=== PATIENT | female | born 1985 | race Caucasian/White ===

== ENCOUNTER 2019-02-23 22:25 | Emergency (ER) | payer OTHER ==
[~2019-02-23] VITALS: Ht 160 cm; Wt 79.4 kg
[2019-02-23] MEDS ORDERED: PRENATAL VIT (22:36)
[2019-02-23] MEDS ORDERED: ZYRTEC (22:36)
[2019-02-23 23:07] LABS: BASOPHILS # (AUTO) 0.15 x10^3/uL (0-0.1); BASOPHILS % (AUTO) 1 % (0-1); EOSINOPHILS # (AUTO) 0.13 x10^3/uL (0-0.4); EOSINOPHILS % (AUTO) 1 % (1-7); LYMPHOCYTES # (AUTO) 4.49 x10^3/uL (1-3.4); LYMPHOCYTES % (AUTO) 28 % (22-44); MD NO; MEAN CORPUSCULAR HEMOGLOBIN 30.8 pg (27.0-34.8); MEAN CORPUSCULAR HGB CONC 33.4 g/dL (32.4-35.8); MEAN CORPUSCULAR VOLUME 92.2 fL (80-100); MEAN PLATELET VOLUME 8.6 fL (7.4-10.4); MONOCYTES # (AUTO) 0.84 x10^3/uL (0.2-0.8); MONOCYTES % (AUTO) 5 % (2-9); NEUTROPHILS # (AUTO) 10.71 x10^3/uL (1.8-6.8); NEUTROPHILS % (AUTO) 66 % (42-75); PLATELET COUNT 388 x10^3/uL (130-400); RED BLOOD COUNT 4.39 x10^6/uL (3.82-5.3); RED CELL DISTRIBUTION WIDTH 13.6 % (9.6-15.2)
[2019-02-23 23:23] LABS: ALBUMIN 3.5 g/dL (3.4-5.0); ANION GAP 8 mmol/L (5-15); CALCIUM 8.9 mg/dL (8.5-10.1); CHLORIDE 106 mmol/L (98-107)
--- NOTE | 2019-02-23 23:30 | NUR ---
pt to ed for vaginal bleeding. 2nd pad. +cramping. . gait steady. vss. call zaidi in reach. as
[2019-02-23 23:42] LABS: CREATININE 0.66 mg/dL (0.55-1.02)
[2019-02-24 00:06] LABS: MICROSCOPIC INDICATED
--- NOTE | 2019-02-24 00:10 | NUR ---
Report from Rafaela STINSON. Pt resting in bed, RAGINI, denies needs.
--- NOTE | 2019-02-24 00:13 | NUR ---
report to melissa payneas
[2019-02-24 00:55] LABS: CULTURE INDICATED? NO
[2019-02-24 01:38] VITALS: BP 111/67
== END 2019-02-24 01:40 | disposition home or self-care (01) ==
LOC: ED 02-24 00:42
DX: O20.0 Threatened abortion (principal); R82.71 Bacteriuria
CPT/HCPCS: 36415; 76801; 80048; 81001; 82040; 84702; 85025; 86901; 99284

== ENCOUNTER 2019-07-17 12:54 | Inpatient (IN) | payer OTHER ==
[~2019-07-17] VITALS: Ht 162.6 cm; Wt 88.0 kg
[~2019-07-17 12:54] MED LIST: PRENATAL VIT; ZYRTEC
[2019-07-17 14:24] LABS: CHLORIDE 109 mmol/L (98-107)
[2019-07-17 14:25] LABS: MICROSCOPIC INDICATED
[2019-07-17 14:31] LABS: TOTAL PROTEIN,URINE RANDOM 6 mg/dL (0-12)
[2019-07-17 14:32] LABS: ALANINE AMINOTRANSFERASE 18 U/L (12-78); ALBUMIN 2.6 g/dL (3.4-5.0); ALKALINE PHOSPHATASE 91 U/L (45-117); ANION GAP 8 mmol/L (5-15); BILIRUBIN,TOTAL 0.4 mg/dL (0.2-1.0); CALCIUM 8.4 mg/dL (8.5-10.1); CREATININE 0.53 mg/dL (0.55-1.02); TOTAL PROTEIN 6.6 g/dL (6.4-8.2)
[2019-07-17 14:33] LABS: CREATININE,URINE RANDOM < 13.00 mg/dL; PROTEIN/CREATININE RATIO,URINE 462 (0-200)
[2019-07-17 14:36] LABS: BILIRUBIN, DIRECT < 0.1 mg/dL (0.1-0.2)
[2019-07-17 14:41] LABS: BASOPHILS % (AUTO) 1 % (0-1); EOSINOPHILS # (AUTO) 0.05 x10^3/uL (0-0.4); EOSINOPHILS % (AUTO) 1 % (1-7); LYMPHOCYTES # (AUTO) 1.78 x10^3/uL (1-3.4); LYMPHOCYTES % (AUTO) 16 % (22-44); MD SCAN; MEAN CORPUSCULAR HEMOGLOBIN 29.1 pg (27.0-34.8); MEAN CORPUSCULAR HGB CONC 32.4 g/dL (32.4-35.8); MEAN CORPUSCULAR VOLUME 89.6 fL (80-100); MEAN PLATELET VOLUME 8.7 fL (7.4-10.4); MONOCYTES # (AUTO) 0.61 x10^3/uL (0.2-0.8); MONOCYTES % (AUTO) 6 % (2-9); NEUTROPHILS # (AUTO) 8.71 x10^3/uL (1.8-6.8); NEUTROPHILS % (AUTO) 77 % (42-75); PLATELET COUNT 294 x10^3/uL (130-400); RED BLOOD COUNT 3.89 x10^6/uL (3.82-5.3); RED CELL DISTRIBUTION WIDTH 15.2 % (9.6-15.2)
[2019-07-17] MEDS ORDERED: BETAMETHASONE 6 MG/ML, 5ML IM ONE (15:16)
[2019-07-17] MEDS: BETAMETHASONE 6 MG/ML, 5ML IM SCH (15:25)
[2019-07-17] MEDS ORDERED: hydrALAzine 20 MG/ML, 1ML IVPush ONE (16:30)
[2019-07-17] MEDS ORDERED: LACTATED RINGERS 1,000 ML IV SCH ×2 (16:30→19:31)
[2019-07-17] MEDS ORDERED: MAGNESIUM SULFATE PMX 4GM/100M 100 ML IVPB ONE (16:30)
[2019-07-17] MEDS ORDERED: LABETALOL 5MG/ML, 20ML IVPush PRN ×3 (16:30)
[2019-07-17] MEDS ORDERED: MAGNESIUM SULF. PMX 20GM/500ML 500 ML IV ONE (16:35)
[2019-07-17] MEDS ORDERED: LABETALOL 5MG/ML, 20ML ONE (16:35)
[2019-07-17] MEDS ORDERED: PLEASE ENTER WEIGHT MC SCH ×2 (17:00→21:00)
[2019-07-17] MEDS: MAGNESIUM SULF. PMX 20GM/500ML 500 ML IV SCH (17:16)
[2019-07-17] MEDS ORDERED: LACTATED RINGERS 1,000 ML IV PRN (17:53)
[2019-07-17] MEDS ORDERED: CALCIUM CARBONATE 500 MG TAB.CHEW ONE (18:27)
[2019-07-17] MEDS ORDERED: OXYTOCIN 30U/ 0.9% NaCL 500ML 500 ML IV ONE (19:31)
[2019-07-17] MEDS ORDERED: NEWBORN KIT ONE (19:38)
[2019-07-17] MEDS ORDERED: FENTANYL PF 100 MCG/2ML IV PRN (20:00)
[2019-07-17] MEDS ORDERED: FENTANYL PF 100 MCG/2ML IVPush PRN (20:00)
[2019-07-17] MEDS ORDERED: TERBUTALINE 1 MG/ML, 1ML IVPush PRN (20:00)
[2019-07-17] MEDS ORDERED: TERBUTALINE 1 MG/ML, 1ML SQ PRN (20:00)
[2019-07-17] MEDS ORDERED: ONDANSETRON 2MG/ML, 2ML IVPush PRN (20:00)
[2019-07-17] MEDS ORDERED: MISOPROSTOL 25 MCG TABLET ONE (20:05)
[2019-07-17] MEDS: MISOPROSTOL 25 MCG TABLET VG PRN (20:10)
[2019-07-18] MEDS ORDERED: MISOPROSTOL 25 MCG TABLET ONE ×2 (00:10→05:23)
[2019-07-18] MEDS ORDERED: MAGNESIUM SULF. PMX 20GM/500ML 500 ML IV ONE ×3 (00:18→18:39)
[2019-07-18] MEDS: MAGNESIUM SULF. PMX 20GM/500ML 500 ML IV SCH ×3 (00:22→18:42)
[2019-07-18] MEDS: MISOPROSTOL 25 MCG TABLET VG PRN (00:25)
[2019-07-18] MEDS ORDERED: CALCIUM CARBONATE 500 MG TAB.CHEW ONE ×2 (00:29→00:31)
[2019-07-18] MEDS: CALCIUM CARBONATE 500 MG TAB.CHEW PO PRN (00:32)
[2019-07-18] MEDS ORDERED: FAMOTIDINE 20 MG TABLET ONE ×2 (02:52→16:27)
[2019-07-18] MEDS: FAMOTIDINE 20 MG TABLET PO SCH (02:55)
[2019-07-18 04:47] LABS: BASOPHILS # (AUTO) 0.11 x10^3/uL (0-0.1); BASOPHILS % (AUTO) 1 % (0-1); EOSINOPHILS % (AUTO) 0 % (1-7); LYMPHOCYTES # (AUTO) 1.53 x10^3/uL (1-3.4); LYMPHOCYTES % (AUTO) 10 % (22-44); MD NO; MEAN CORPUSCULAR HEMOGLOBIN 28.9 pg (27.0-34.8); MEAN CORPUSCULAR HGB CONC 32.5 g/dL (32.4-35.8); MEAN CORPUSCULAR VOLUME 88.7 fL (80-100); MEAN PLATELET VOLUME 9.2 fL (7.4-10.4); MONOCYTES # (AUTO) 0.67 x10^3/uL (0.2-0.8); MONOCYTES % (AUTO) 4 % (2-9); NEUTROPHILS # (AUTO) 13.05 x10^3/uL (1.8-6.8); NEUTROPHILS % (AUTO) 85 % (42-75); PLATELET COUNT 313 x10^3/uL (130-400); RED BLOOD COUNT 3.99 x10^6/uL (3.82-5.3); RED CELL DISTRIBUTION WIDTH 15.1 % (9.6-15.2)
[2019-07-18] MEDS ORDERED: ACETAMINOPHEN 325 MG TABLET ONE (04:57)
[2019-07-18 04:58] LABS: ALANINE AMINOTRANSFERASE 21 U/L (12-78); ALBUMIN 2.7 g/dL (3.4-5.0); ANION GAP 11 mmol/L (5-15); CHLORIDE 104 mmol/L (98-107); CREATININE 0.63 mg/dL (0.55-1.02)
[2019-07-18 05:00] LABS: ALKALINE PHOSPHATASE 100 U/L (45-117); BILIRUBIN,TOTAL 0.3 mg/dL (0.2-1.0); TOTAL PROTEIN 7.1 g/dL (6.4-8.2)
[2019-07-18] MEDS ORDERED: OXYTOCIN 30U/ 0.9% NaCL 500ML 500 ML ONE (05:23)
[2019-07-18] MEDS ORDERED: LABETALOL 5MG/ML, 20ML IVPush PRN ×2 (05:30→22:30)
[2019-07-18] MEDS ORDERED: LACTATED RINGERS 1,000 ML IV SCH ×2 (07:09→16:23)
[2019-07-18] MEDS ORDERED: FENTANYL/BUPIV./NS/PF 250 ML EPIDCONT SCH (07:09)
[2019-07-18] MEDS ORDERED: LACTATED RINGERS 1,000 ML IVBOLUS PRN ×2 (07:30→16:30)
[2019-07-18] MEDS ORDERED: EPHEDRINE 50 MG/ML, 1ML IVPush PRN ×2 (07:30→16:30)
[2019-07-18] MEDS: PRENATAL VIT/IRON/FA 1 EACH TABLET PO SCH (09:00)
[2019-07-18] MEDS: CETIRIZINE 10 MG TABLET PO PRN (10:38)
[2019-07-18] MEDS ORDERED: AMPICILLIN 2 GM in SODIUM CHLORIDE 0.9% 100 ML IVPB ONE (13:00)
[2019-07-18] MEDS ORDERED: POTASSIUM CHLORIDE 40 MEQ in LACTATED RINGERS 1,000 ML IV SCH (13:00)
[2019-07-18] MEDS ORDERED: FENTANYL PF 100 MCG/2ML ONE (14:43)
[2019-07-18] MEDS: BETAMETHASONE 6 MG/ML, 5ML IM SCH (15:03)
[2019-07-18] MEDS ORDERED: FENTANYL PF 500 MCG, BUPIVACAINE/PF 0.5%, 30ML 62.5 ML in SODIUM CHLORIDE 0.9% 177.5 ML EPIDCONT SCH (15:30)
[2019-07-18] MEDS ORDERED: BUPIVACAINE 0.25% ONE (16:02)
[2019-07-18] MEDS: D5%-LACTATED RINGERS 1,000 ML IV SCH (16:07)
[2019-07-18] MEDS: AMPICILLIN 1 GM in SODIUM CHLORIDE 0.9% 50 ML IVPB SCH ×2 (16:51→21:00)
[2019-07-18] MEDS ORDERED: FENTANYL PF 500 MCG, BUPIVACAINE/PF 0.5%, 30ML 62.5 ML in SODIUM CHLORIDE 0.9% 177.5 ML IV SCH (17:00)
[2019-07-18] MEDS ORDERED: FAMOTIDINE 20 MG/2 ML IVPush ONE (17:00)
[2019-07-18] MEDS ORDERED: OXYTOCIN 30U/ 0.9% NaCL 500ML 500 ML IV PRN (17:03)
[2019-07-18 22:28] VITALS: BP 151/77
[2019-07-19] MEDS: AMPICILLIN 1 GM in SODIUM CHLORIDE 0.9% 50 ML IVPB SCH ×5 (00:48→17:00)
[2019-07-19] MEDS ORDERED: FAMOTIDINE 20 MG TABLET ONE ×3 (01:23→01:33)
[2019-07-19] MEDS: FAMOTIDINE 20 MG TABLET PO SCH ×2 (01:25→21:00)
[2019-07-19] MEDS ORDERED: CALCIUM CARBONATE 500 MG TAB.CHEW ONE ×2 (03:14→13:02)
[2019-07-19] MEDS: CALCIUM CARBONATE 500 MG TAB.CHEW PO PRN ×2 (03:17→13:04)
[2019-07-19] MEDS ORDERED: MAGNESIUM SULF. PMX 20GM/500ML 500 ML IV ONE ×2 (03:45→14:39)
[2019-07-19] MEDS ORDERED: LABETALOL 5MG/ML, 20ML IVPush PRN ×4 (04:00→22:00)
[2019-07-19] MEDS: MAGNESIUM SULF. PMX 20GM/500ML 500 ML IV SCH ×2 (05:13→14:47)
[2019-07-19] MEDS: D5%-LACTATED RINGERS 1,000 ML IV SCH (07:56)
[2019-07-19] MEDS: PRENATAL VIT/IRON/FA 1 EACH TABLET PO SCH (09:00)
[2019-07-19] MEDS ORDERED: FENTANYL/BUPIV./NS/PF 250 ML EPIDCONT ONE (10:46)
[2019-07-19] MEDS ORDERED: METOCLOPRAMIDE 5 MG/ML, 2ML ONE (17:48)
[2019-07-19] MEDS ORDERED: SODIUM CITRATE/CITRIC ACID 30 ML UDC ONE (17:48)
[2019-07-19] MEDS ORDERED: FENTANYL PF 100 MCG/2ML ONE ×2 (17:58→18:02)
[2019-07-19] MEDS ORDERED: EPHEDRINE 50 MG/ML, 1ML ONE (17:58)
[2019-07-19] MEDS: LACTATED RINGERS 1,000 ML IV SCH ×2 (17:58)
[2019-07-19] MEDS ORDERED: SUCCINYLCHOLINE 20 MG/ML, 10ML ONE (17:58)
[2019-07-19] MEDS ORDERED: DEXAMETHASONE 4 MG/ML, 1ML ONE (17:58)
[2019-07-19] MEDS ORDERED: OXYTOCIN 10 UNITS/ML, 1ML ONE (17:58)
[2019-07-19] MEDS ORDERED: CEFAZOLIN 1,000 MG ONE (17:58)
[2019-07-19] MEDS ORDERED: ONDANSETRON 2MG/ML, 2ML ONE (17:58)
[2019-07-19] MEDS ORDERED: PROPOFOL 10 MG/ML, 20ML ONE (17:58)
[2019-07-19] MEDS: OXYTOCIN 30U/ 0.9% NaCL 500ML 500 ML IV SCH (17:58)
[2019-07-19] MEDS ORDERED: KETOROLAC 30 MG/1 ML ONE (17:58)
[2019-07-19] MEDS ORDERED: PHENYLEPHRINE 10 MG/ML ONE (17:58)
[2019-07-19] MEDS ORDERED: MISOPROSTOL 200 MCG TABLET PR PRN (18:00)
[2019-07-19] MEDS ORDERED: ALBUTEROL SULFATE 2.5 MG/3 ML NPPB PRN (18:00)
[2019-07-19] MEDS ORDERED: ONDANSETRON 2MG/ML, 2ML IV PRN (18:00)
[2019-07-19] MEDS ORDERED: SODIUM CITRATE/CITRIC ACID 30 ML UDC PO ONE (18:00)
[2019-07-19] MEDS ORDERED: MEPERIDINE/PF 25MG/0.5ML IVPush PRN (18:00)
[2019-07-19] MEDS ORDERED: PROMETHAZINE 25 MG/ML, 1ML IV PRN (18:00)
[2019-07-19] MEDS ORDERED: METOPROLOL 1 MG/ML, 5ML IV PRN (18:00)
[2019-07-19] MEDS ORDERED: OXYcodone/APAP 5/325MG TABLET PO PRN (18:00)
[2019-07-19] MEDS ORDERED: CALCIUM CARBONATE 500 MG TAB.CHEW PO PRN (18:00)
[2019-07-19] MEDS ORDERED: EPHEDRINE 50 MG/ML, 1ML IVPush PRN (18:00)
[2019-07-19] MEDS ORDERED: ONDANSETRON 2MG/ML, 2ML IVPush PRN (18:00)
[2019-07-19] MEDS ORDERED: morphine SULFATE 10 MG/ML, 1ML IVPush PRN (18:00)
[2019-07-19] MEDS ORDERED: FENTANYL PF 100 MCG/2ML IV PRN (18:00)
[2019-07-19] MEDS ORDERED: hydrALAzine 20 MG/ML, 1ML IV PRN (18:00)
[2019-07-19] MEDS ORDERED: HYDROcodone/APAP 7.5-325MG/15ML UDC PO PRN (18:00)
[2019-07-19] MEDS ORDERED: OXYcodone 5 MG/5 ML ORAL.SOL UDC PO PRN (18:00)
[2019-07-19] MEDS ORDERED: METOCLOPRAMIDE 5 MG/ML, 2ML IVPush ONE (18:00)
[2019-07-19] MEDS ORDERED: LABETALOL 5MG/ML, 20ML IV PRN (18:00)
[2019-07-19] MEDS ORDERED: MEPERIDINE/PF 50 MG/ML IVPush PRN (18:00)
[2019-07-19] MEDS ORDERED: MIDAZOLAM 1 MG/ML, 2ML IV PRN (18:00)
[2019-07-19] MEDS ORDERED: AZITHROMYCIN 500 MG in SODIUM CHLORIDE 0.9% 250 ML IV ONE (18:00)
[2019-07-19] MEDS ORDERED: HYDROmorphone 2 MG/ML, 1ML IVPush PRN (18:00)
[2019-07-19] MEDS ORDERED: morphine SULFATE/PF 0.5 MG/ML, 10ML ONE (18:26)
[2019-07-19] MEDS ORDERED: OXYcodone 5 MG/5 ML ORAL.SOL UDC ONE (19:09)
[2019-07-19] MEDS ORDERED: OXYTOCIN 30U/ 0.9% NaCL 500ML 500 ML ONE (19:09)
[2019-07-19 20:00] VITALS: BP 157/95
[2019-07-19] MEDS ORDERED: hydrALAzine 20 MG/ML, 1ML IVPush ONE (22:00)
[2019-07-20] MEDS ORDERED: MAGNESIUM SULF. PMX 20GM/500ML 500 ML IV ONE ×2 (01:23→10:53)
[2019-07-20] MEDS: MAGNESIUM SULF. PMX 20GM/500ML 500 ML IV SCH ×2 (01:26→10:56)
[2019-07-20] MEDS: LACTATED RINGERS 1,000 ML IV SCH ×4 (01:58→23:58)
[2019-07-20] MEDS ORDERED: KETOROLAC 30 MG/1 ML ONE ×3 (02:00→13:57)
[2019-07-20] MEDS: KETOROLAC 30 MG/1 ML IV SCH ×5 (02:02→19:52)
[2019-07-20] MEDS: OXYTOCIN 30U/ 0.9% NaCL 500ML 500 ML IV SCH ×3 (03:58→23:58)
[2019-07-20] MEDS: CETIRIZINE 10 MG TABLET PO PRN (04:57)
[2019-07-20 06:42] LABS: BASOPHILS # (AUTO) 0.11 x10^3/uL (0-0.1); BASOPHILS % (AUTO) 1 % (0-1); EOSINOPHILS # (AUTO) 0.02 x10^3/uL (0-0.4); EOSINOPHILS % (AUTO) 0 % (1-7); LYMPHOCYTES % (AUTO) 11 % (22-44); MD NO; MEAN CORPUSCULAR HEMOGLOBIN 29.3 pg (27.0-34.8); MEAN CORPUSCULAR HGB CONC 32.7 g/dL (32.4-35.8); MEAN CORPUSCULAR VOLUME 89.4 fL (80-100); MEAN PLATELET VOLUME 8.6 fL (7.4-10.4); MONOCYTES # (AUTO) 0.95 x10^3/uL (0.2-0.8); MONOCYTES % (AUTO) 6 % (2-9); NEUTROPHILS # (AUTO) 12.66 x10^3/uL (1.8-6.8); NEUTROPHILS % (AUTO) 82 % (42-75); PLATELET COUNT 275 x10^3/uL (130-400); RED BLOOD COUNT 3.28 x10^6/uL (3.82-5.3); RED CELL DISTRIBUTION WIDTH 15.4 % (9.6-15.2)
[2019-07-20 06:50] LABS: ALBUMIN 1.9 g/dL (3.4-5.0); ANION GAP 8 mmol/L (5-15); CALCIUM 6.2 mg/dL (8.5-10.1); CHLORIDE 102 mmol/L (98-107)
[2019-07-20 06:54] LABS: ALANINE AMINOTRANSFERASE 14 U/L (12-78); ALKALINE PHOSPHATASE 77 U/L (45-117); BILIRUBIN,TOTAL 0.3 mg/dL (0.2-1.0); CREATININE 0.49 mg/dL (0.55-1.02); TOTAL PROTEIN 5.3 g/dL (6.4-8.2)
[2019-07-20] MEDS ORDERED: POTASSIUM CHLORIDE 40 MEQ in LACTATED RINGERS 1,000 ML IV SCH (07:30)
[2019-07-20] MEDS: PRENATAL VIT/IRON/FA 1 EACH TABLET PO SCH (09:00)
[2019-07-20] MEDS ORDERED: POTASSIUM CHLORIDE 20 MEQ PACKET PO SCH (19:00)
[2019-07-20] MEDS: SIMETHICONE 80 MG CHEW TAB PO PRN (19:52)
[2019-07-20] MEDS: DOCUSATE 100 MG CAPSULE PO PRN (19:52)
[2019-07-20 20:00] VITALS: BP 148/79
[2019-07-20] MEDS: FAMOTIDINE 20 MG TABLET PO SCH (21:00)
[2019-07-20] MEDS: OXYcodone/APAP 5/325MG TABLET PO PRN (21:42)
[2019-07-21] VITALS (9 sets, daily range): BP systolic 145–166; BP diastolic 84–102
[2019-07-21] MEDS: MAGNESIUM SULF. PMX 20GM/500ML 500 ML IV SCH ×3 (00:29→18:10)
[2019-07-21] MEDS: OXYcodone/APAP 5/325MG TABLET PO PRN ×2 (04:00→19:34)
[2019-07-21] MEDS: KETOROLAC 30 MG/1 ML IV SCH ×3 (04:00→12:00)
[2019-07-21] MEDS: PRENATAL VIT/IRON/FA 1 EACH TABLET PO SCH (09:00)
[2019-07-21] MEDS: OXYTOCIN 30U/ 0.9% NaCL 500ML 500 ML IV SCH ×2 (09:58→18:07)
[2019-07-21] MEDS: LACTATED RINGERS 1,000 ML IV SCH ×2 (09:58→18:11)
[2019-07-21] MEDS: POTASSIUM CHLORIDE 20 MEQ PACKET PO SCH ×3 (13:00→16:36)
[2019-07-21] MEDS: SIMETHICONE 80 MG CHEW TAB PO PRN (19:33)
[2019-07-21] MEDS: IBUPROFEN 600 MG TABLET PO PRN (19:34)
[2019-07-21] MEDS: DOCUSATE 100 MG CAPSULE PO PRN (19:34)
[2019-07-21] MEDS: FAMOTIDINE 20 MG TABLET PO SCH (19:38)
[2019-07-21] MEDS ORDERED: POTASSIUM CHLORIDE 20 MEQ TAB.ER.PRT PO ONE (21:00)
[2019-07-22] VITALS (8 sets, daily range): BP systolic 140–165; BP diastolic 73–101
[2019-07-22] MEDS: OXYcodone/APAP 5/325MG TABLET PO PRN ×4 (00:20→17:30)
[2019-07-22] MEDS: IBUPROFEN 600 MG TABLET PO PRN ×3 (01:43→17:30)
[2019-07-22 05:57] LABS: ANION GAP 11 mmol/L (5-15); CALCIUM 8.1 mg/dL (8.5-10.1); CHLORIDE 107 mmol/L (98-107); CREATININE 0.46 mg/dL (0.55-1.02)
[2019-07-22] MEDS: OXYTOCIN 30U/ 0.9% NaCL 500ML 500 ML IV SCH ×2 (05:58→15:58)
[2019-07-22] MEDS: LACTATED RINGERS 1,000 ML IV SCH ×2 (05:58→15:58)
[2019-07-22] MEDS: POTASSIUM CHLORIDE 20 MEQ PACKET PO SCH ×3 (08:57→17:30)
[2019-07-22] MEDS: PRENATAL VIT/IRON/FA 1 EACH TABLET PO SCH (09:00)
[2019-07-22] MEDS: SIMETHICONE 80 MG CHEW TAB PO PRN (10:11)
[2019-07-22] MEDS: LABETALOL 200 MG TABLET PO SCH ×2 (12:57→17:30)
[2019-07-22] MEDS: FAMOTIDINE 20 MG TABLET PO SCH (21:00)
[2019-07-23] MEDS: IBUPROFEN 600 MG TABLET PO PRN ×3 (00:32→15:56)
[2019-07-23] MEDS: DOCUSATE 100 MG CAPSULE PO PRN (00:34)
[2019-07-23] MEDS: OXYTOCIN 30U/ 0.9% NaCL 500ML 500 ML IV SCH (01:58)
[2019-07-23] MEDS: LACTATED RINGERS 1,000 ML IV SCH (01:58)
[2019-07-23 04:55] VITALS: BP 146/93
[2019-07-23] MEDS: OXYcodone/APAP 5/325MG TABLET PO PRN ×3 (05:43→15:56)
[2019-07-23 08:15] VITALS: BP 157/97
[2019-07-23] MEDS: LABETALOL 200 MG TABLET PO SCH (08:30)
[2019-07-23] MEDS: POTASSIUM CHLORIDE 20 MEQ PACKET PO SCH ×2 (08:30→13:03)
[2019-07-23] MEDS: PRENATAL VIT/IRON/FA 1 EACH TABLET PO SCH (09:00)
[2019-07-23 11:15] VITALS: BP 150/80
[2019-07-23] MEDS ORDERED: OXYC-302 PO (14:33)
[2019-07-23] MEDS ORDERED: IBUP-1222 PO (14:33)
== END 2019-07-23 16:15 | disposition home or self-care (01) | DRG 788 ==
LOC: LDOP 12:54 → INTOOBSV 15:03 → OBSVTOIN 15:03 → LDIP 15:03 → 2NE 15:15 → OBSVTOIN 19:00 → LDIP 20:10 → 2NE 07-19 20:59 → 2NW 07-20 19:15
PROVIDERS: ADMIT Obstetrics & Gynecology; ATTEND Obstetrics & Gynecology
PROC: 10D00Z1 Extraction of Products of Conception, Low, Open Approach (ICD-10-PCS; principal; 2019-07-19)
DX: O14.14 Severe pre-eclampsia complicating childbirth (principal); O32.4XX0 Maternal care for high head at term, not applicable or unspecified; O99.284 Endocrine, nutritional and metabolic diseases complicating childbirth; E87.6 Hypokalemia; Z91.012 Allergy to eggs; Z37.0 Single live birth; Z3A.34 34 weeks gestation of pregnancy
CPT/HCPCS: 36415; J3490; J7121; S0020; 80048; 80053; 81001; 82248; 82570; 83735; 84132; 84156; 84550; 85025; 86592; 86850; 86900; 87081; G0378; J0290; J0456; J0690; J0702; J1100; J1885; J2274; J2405; J2704; J3010; J3480; J0330; J2370; J2590; J2765; J3475; J7050; J7120